=== PATIENT | female | born 1985 | race Caucasian/White ===

== ENCOUNTER 2023-05-31 13:39 | Emergency (ER) | payer SELFPAY ==
[~2023-05-31] VITALS: Ht 182.9 cm; Wt 188.0 kg
[2023-05-31 13:40] VITALS: BP 134/81; TEMP 97.7; O2SAT 99
[2023-05-31] MEDS ORDERED: OMEP10CASR PO (13:48)
[2023-05-31] MEDS ORDERED: ACETAMINOPHEN TAB 650MG DOSE (2X325MG) PO ONE (17:20)
== END 2023-05-31 18:00 | disposition left against medical advice (07) ==
LOC: M ED 13:39
DX: R07.9 Chest pain, unspecified (principal); K21.9 Gastro-esophageal reflux disease without esophagitis; E03.9 Hypothyroidism, unspecified; Z79.83 Long term (current) use of bisphosphonates; Z88.1 Allergy status to other antibiotic agents; Z88.8 Allergy status to other drugs, medicaments and biological substances; Z53.9 Procedure and treatment not carried out, unspecified reason